=== PATIENT | male | born 1950 | race Caucasian/White ===

== ENCOUNTER 2017-07-13 15:23 | Emergency (ER) | payer MEDICARE, OTHER ==
[2017-07-13 15:37] VITALS: BP 134/75
--- NOTE | 2017-07-13 17:51 | EDM.PDOC ---
ED HPI GENERAL MEDICAL PROBLEM - General Chief Complaint: Upper Extremity Injury/Pain Stated Complaint: R RING FINGER INJURY Time Seen by Provider: 07/13/17 17:00 Source of Information: Reports: Patient History Limitations: Reports: No Limitations - History of Present Illness INITIAL COMMENTS - FREE TEXT/NARRATIVE: 66-year-old male presents for evaluation and treatment of injury to the right hand fourth finger. Injury occurred around 1430 today. Patient reports that he was working and was kicked in the hand by a cow. Reports the pain is an 8 out of 10 currently. No range of motion to the finger due to pain. States he took a hydrocodone earlier but this did not resolve any pain. In addition to decreased range of motion he reports swelling and bruising. Previous trauma to the finger about 10 years ago. He states that the finger was broken and was not seen initially. This resulted in trigger finger and he subsequently required trigger finger surgery. Onset: Today Location: Reports: Upper Extremity, Right (4th finger) Right Hand Pain Score (Numeric/FACES): 8 - Related Data Allergies Allergy/AdvReac Type Severity Reaction Status Date / Time morphine Allergy Difficulty Verified 07/13/17 15:32 Breathing Home Meds: Home Meds Aspirin [Balbir Chewable Aspirin] 81 mg PO DAILY 09/17/13 [History] Lisinopril 10 mg PO DAILY 09/17/13 [History] Multivitamin [Multi Vitamin Daily] 1 each PO DAILY 09/17/13 [History] Carvedilol 3.125 mg PO BID 04/06/14 [History] Clopidogrel [Plavix] 75 mg PO DAILY 04/06/14 [History] Hydrocodone/Acetaminophen [Hydrocodone-Acetaminophen 5-325] 1 each PO Q6HR PRN 04/06/14 [History] atorvaSTATin [Lipitor] 40 mg PO DAILY 04/06/14 [History] Furosemide [Lasix] 40 mg PO BID #60 tablet 09/10/14 [Rx] Potassium Chloride 20 meq PO DAILY #30 tab.er.prt 09/10/14 [Rx] Amoxicillin/Clavulanate K [Augmentin 875-125 MG] 1 tab PO Q12HR #20 tab [Rx] Past Medical History Cardiovascular History: Reports: High Cholesterol, Hypertension, [place], Prior Cardiac Arrest, Stents Social & Family History - Tobacco Use Smoking Status *Q: Current Every Day Smoker Years of Tobacco use: 40 Packs/Tins Daily: 0.6 - Alcohol Use Days Per Week of Alcohol Use: 0 - Recreational Drug Use Recreational Drug Use: No Review of Systems - Review of Systems Review Of Systems: See Below Musculoskeletal: Reports: Hand Pain (right hand 4th finger), Joint Swelling ( PIP joing right hand 4th finger) Skin: Reports: Bruising (right hand forth finger). Denies: Wound Neurological: Reports: Numbness, Tingling (right hand 4th finger) ED EXAM, GENERAL - Physical Exam Exam: See Below Exam Limited By: No Limitations General Appearance: Alert, WD/WN, No Apparent Distress Respiratory/Chest: No Respiratory Distress Cardiovascular: Normal Peripheral Pulses, Regular Rate, Rhythm Peripheral Pulses: 3+: Radial (R) Extremities: Normal Capillary Refill, Limited Range of Motion (due to pain, unable to flex finger), Other (no obvious deformity, swelling to the right hand PIP joint 4th finger) Neurological: Alert, Oriented, Normal Cognition ED TRAUMA EXTREMITY PROCEDURES - Splinting Right 4th Digit Splint Site: 4th finger Pre-Procedure NV Status: Normal Post-Procedure NV Status: Normal Splint Material: Aluminum-Foam Splint Design: Volar Applied & Form Fitted By: Nurse Provider Post-Splint Application NV Check: NV Status Normal, Good Position Complications: No Course - Vital Signs Last Recorded V/S: Last Vital Signs Temp 37.0 C 07/13/17 15:32 Pulse 80 07/13/17 15:32 Resp 18 07/13/17 15:32 BP 134/75 07/13/17 15:32 Pulse Ox 95 07/13/17 15:32 - Radiology Interpretation Free Text/Narrative:: X-ray of the right hand fourth finger shows no acute fractures or dislocations. - Re-Assessments/Exams Free Text/Narrative Re-Assessment/Exam: 07/13/17 17:46 I reviewed the imaging results patient. Patient was put in a finger splint and kat taped. He is instructed to follow- up with family practice. Discharge instructions as documented. Departure - Departure Time of Disposition: 17:46 Disposition: Home, Self-Care 01 Condition: Fair Clinical Impression: Dental abscess Injury of finger Qualifiers: Encounter type: initial encounter Laterality: right Qualified Code(s): S69.91XA - Unspecified injury of right wrist, hand and finger(s), initial encounter - Discharge Information Prescriptions: Amoxicillin/Clavulanate K [Augmentin 875-125 MG] 1 tab PO Q12HR #20 tab Instructions: Dental Abscess, [id number] Referrals: Sylvie Khalil PA [Primary Care Provider] - Forms: ED Department Discharge Additional Instructions: Take Augmentin 1 tab twice a day for 10 days. Take this with food. recommend starting a probiotic. These are available [id number]. Continue on your pain medication that you have at home. Tylenol or Motrin seen for less severe pain. Ice the finger. Keep the splint on to protect it and to allow for mobilization. if your pain continues beyond 7 days to the finger recommend follow-up with your PCP. Please return to the ER if your symptoms change or worsen.
--- NOTE | 2017-07-14 09:03 | CR ---
Right fourth finger: Four views of the right fourth finger were obtained. Comparison: No previous finger exam. Joint spaces are preserved. Calcification is seen along the volar finger at the level of the mid shaft of the middle phalanx most likely dystrophic. Soft tissue swelling appears to be present. No acute fracture or other abnormality is seen. Impression: 1. Findings as noted above which are felt to be incidental. No acute bony abnormality is identified on right fourth finger study. Diagnostic code #2 MTDD
== END 2017-07-13 17:55 | disposition home or self-care (01) ==
LOC: JD.ED 15:23
DX: S69.91XA Unspecified injury of right wrist, hand and finger(s), initial encounter (principal); K04.7 Periapical abscess without sinus; F17.210 Nicotine dependence, cigarettes, uncomplicated; I10 Essential (primary) hypertension; E78.00 Pure hypercholesterolemia, unspecified; Z95.5 Presence of coronary angioplasty implant and graft; Z79.02 Long term (current) use of antithrombotics/antiplatelets; Z79.82 Long term (current) use of aspirin; Z79.899 Other long term (current) drug therapy; Z88.5 Allergy status to narcotic agent; W55.22XA Struck by cow, initial encounter; Y93.89 Activity, other specified; Y99.0 Civilian activity done for income or pay
CPT/HCPCS: 29125; 73140-26-F8; 73140-F8; 99283; 99283-25

== ENCOUNTER 2018-09-15 06:45 | Emergency (ER) | payer MEDICARE, OTHER ==
[2018-09-15] MEDS ORDERED: Diltiazem 50 MG/10 ML SDV IVPUSH ONE (06:58)
[2018-09-15] MEDS ORDERED: Diltiazem 125 MG in Sodium Chloride 0.9% 100 ML IV SCH (07:00)
[2018-09-15] MEDS ORDERED: Sodium Chloride 0.9% 1,000 ML IV SCH (07:00)
--- NOTE | 2018-09-15 07:01 | EDM.PDOC ---
ED HPI GENERAL MEDICAL PROBLEM - General Chief Complaint: Cardiovascular Problem Stated Complaint: POSS HEART ATTACK/CHEST PAIN Time Seen by Provider: 09/15/18 06:58 Source of Information: Reports: Patient History Limitations: Reports: No Limitations - History of Present Illness INITIAL COMMENTS - FREE TEXT/NARRATIVE: 68-year-old male with known severe coronary disease presents to the ED with acute onset of rapid irregular heartbeat while he was getting ready for work this morning at about 0620 hrs. Patient has had previous cardiac arrest with resuscitation and subsequent stent placement I believe at least twice. He remains on Plavix. He states he's been on medication for H. pylori infection he still on 1 g of Carafate 4 times daily. Still having a lot of stomach pains. On initial assessment he appeared to be in atrial fibrillation with RVR at 125-135/ m. This was on the monitor. He was having some very mild left precordial chest pain and left arm pain compatible with ischemia from rate. Denies any other changes to his heart medications. Feels a little short of breath. Feels a little lightheaded and dizzy. Onset: Today Onset Date: 09/15/18 Onset Time: 06:20 Duration: Minutes: Location: Reports: Chest, Upper Extremity, Left Quality: Reports: Ache (Diffuse ache in his left upper arm.), Pressure Severity: Moderate Improves with: Reports: None (610) Worsens with: Reports: None Context: Denies: Activity, Exercise, Lifting, Sick Contact, Trauma, Other Associated Symptoms: Reports: Chest Pain, Cough, Shortness of Breath. 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: Other (see below) (None.) Left Arm Pain Score (Numeric/FACES): 7 Chest Pain Score (Numeric/FACES): 5 - Related Data Allergies Allergy/AdvReac Type Severity Reaction Status Date / Time morphine Allergy Difficulty Verified 09/15/18 07:13 Breathing Home Meds: Home Meds Aspirin [Balbir Chewable Aspirin] 81 mg PO DAILY 09/17/13 [History] Lisinopril 10 mg PO DAILY 09/17/13 [History] Multivitamin [Multi Vitamin Daily] 1 each PO DAILY 09/17/13 [History] Carvedilol 3.125 mg PO BID 04/06/14 [History] Clopidogrel [Plavix] 75 mg PO DAILY 04/06/14 [History] Hydrocodone/Acetaminophen [Hydrocodone-Acetaminophen 5-325] 1 each PO Q6HR PRN 04/06/14 [History] atorvaSTATin [Lipitor] 40 mg PO DAILY 04/06/14 [History] Furosemide [Lasix] 40 mg PO BID #60 tablet 09/10/14 [Rx] Amoxicillin/Clavulanate K [Augmentin 875-125 MG] 1 tab PO Q12HR #20 tab [Rx] Spironolactone [Aldactone] 25 mg PO BID #60 tab 09/15/18 [Rx] Past Medical History Cardiovascular History: Reports: High Cholesterol, Hypertension, [place] (With acute cardiac arrest in a successive resuscitation from Traction fib.), Prior Cardiac Arrest , Stents (Has [address] Social & Family History - Tobacco Use Smoking Status *Q: Current Every Day Smoker Tobacco Use Within Last Twelve Months: Cigarettes (10:15 per day) ED ROS GENERAL - Review of Systems Review Of Systems: See Below Constitutional: Reports: Weight Loss. Denies: Fever, Chills, Malaise, Weakness , Fatigue HEENT: Reports: Glasses Respiratory: Reports: Shortness of Breath, Wheezing (Only for reading), Cough, Sputum. Denies: Pleuritic Chest Pain, Hemoptysis, Other (Usually clear) Cardiovascular: Reports: Dyspnea on Exertion (Chronically), Lightheadedness. Denies: No Symptoms, Chest Pain (Occasionally he gets up too fast), Blood Pressure Problem, Claudication, Edema, Orthopnea Endocrine: Reports: No Symptoms GI/Abdominal: Reports: Abdominal Pain (Been having a lot of epigastric abdominal pain which is felt to be due to H. pylori infection.), Decreased Appetite. Denies: Constipation, Diarrhea, Difficulty Swallowing, Distension, Flatus, Hematemesis, Hematochezia, Melena : Reports: Frequency, Other Musculoskeletal: Reports: Back Pain (Nocturia 2), Joint Pain (These hip shoulders and neck at times) Skin: Reports: Bruising Neurological: Reports: No Symptoms Psychiatric: Reports: No Symptoms Hematologic/Lymphatic: Reports: No Symptoms Immunologic: Reports: No Symptoms ED EXAM, GENERAL - Physical Exam Exam: See Below Exam Limited By: No Limitations General Appearance: Alert, WD/WN, Mild Distress, Other (Monitor shows atrial fibrillation with a rapid ventricular rate in the 135 range. However by the time ECG was done and shows more of a first-degree AV block sinus rhythm or sinus tachycardia. Possible ectopic atrial rhythm is appreciated.) Throat/Mouth: Normal Inspection, Normal Lips, Normal Oropharynx Head: Atraumatic, Normocephalic Neck: Normal Inspection, Supple, Non-Tender, Full Range of Motion. No: Carotid Bruit, Lymphadenopathy (L), Lymphadenopathy (R) Respiratory/Chest: No Respiratory Distress, Lungs Clear, Normal Breath Sounds, No Accessory Muscle Use, Other (Pacemaker defibrillator left upper anterior chest.) Cardiovascular: No Edema, No Gallop, No Rub, Tachycardia (1 28/m regular wide- complex tachycardia ectopic atrial rhythm versus junctional tachycardia. Versus ectopic atrial tachycardia), Systolic Murmur (Grade 1/6 left lateral sternal border). No: Normal Peripheral Pulses, Regular Rate, Rhythm Peripheral Pulses: 1+: Posterior Tibial (L), Posterior Tibial (R), Dorsalis Pedis (L), Dorsalis Pedis (R) GI/Abdominal: Normal Bowel Sounds, Soft, Non-Tender, No Organomegaly, No Abnormal Bruit, No Mass, Pelvis Stable Back Exam: Normal Inspection, Full Range of Motion. No: CVA Tenderness (L), CVA Tenderness (R) Extremities: Normal Inspection, Normal Range of Motion, Non-Tender, No Pedal Edema Neurological: Alert, Oriented, CN II-XII Intact, Normal Cognition, Normal Gait Psychiatric: Normal Affect, Anxious Skin Exam: Warm (Mildly anxious), Dry, Intact, Normal Color, No Rash EKG INTERPRETATION EKG Date: 09/15/18 Time: 06:53 Rhythm: Other (Wide-complex regular tachycardia. Appears to be first-degree AV block. Ectopic atrial tachycardia) Rate (Beats/Min): 125 [place]: LAD-Left [place] Deviation (-24) P-Wave: Present (First-degree AV block crystal ectopic atrial rhythm.) QRS: Wide (There is a nonspecific intraventricular conduction delay which I believe will be a right bundle branch block.) ST-T: Other (His ST segment depression V4 to V6 and 1. AVL as well.) QT: Prolonged (Moderately prolonged.) Course - Vital Signs Last Recorded V/S: Last Vital Signs Temp 36.6 C 09/15/18 06:50 Pulse 134 H 09/15/18 06:50 Resp 22 H 09/15/18 06:50 BP 113/80 09/15/18 06:50 Pulse Ox 85 L 09/15/18 06:50 - Orders/Labs/Meds Orders: Active Orders 24 hr Category Date Time Status EKG 12 Lead [EKG Documentation Completion] [RC] URGENT Care 09/15/18 07:10 Active EKG Documentation Completion [RC] STAT Care 09/15/18 07:10 Active TSH [CHEM] Stat Lab 09/15/18 06:55 Received URINALYSIS W/O MICROSCOPIC [UA W/O MICROSCOPIC] [URIN] Lab 09/15/18 07:45 Ordered Stat Nitroglycerin/D5W [Nitroglycerin 25 MG/D5W 250 ML] Med 09/15/18 07:30 Active 25 mg in 250 ml IV TITRATE Sodium Chloride 0.9% [Normal Saline] 1,000 ml Med 09/15/18 07:00 Active IV ASDIRECTED Medication Orders Sodium Chloride (Normal Saline) 1,000 mls @ 100 mls/hr IV ASDIRECTED TICO Last Admin: 09/15/18 07:15 Dose: 100 mls/hr Nitroglycerin/Dextrose (Nitroglycerin 25 Mg/D5w 250 Ml) 25 mg in 250 mls @ 3 mls/hr IV TITRATE TICO; Protocol Last Admin: 09/15/18 07:32 Dose: 5 mcg/min, 3 mls/hr Labs: Laboratory Tests 09/15/18 09/15/18 09/15/18 Range/Units 06:55 06:55 06:55 WBC 9.53 H (4.23-9.07) K/mm3 RBC 4.42 L (4.63-6.08) M/mm3 Hgb 14.3 (13.7-17.5) gm/L Hct 43.5 (40.1-51.0) % MCV 98.4 H (79.0-92.2) fl MCH 32.4 H (25.7-32.2) pg MCHC 32.9 (32.2-35.5) g/dl RDW Std Deviation 47.2 H (35.1-43.9) fL Plt Count 265 (163-337) K/mm3 MPV 10.1 (9.4-12.3) fl Neutrophils % (Manual) 71 H (40-60) % Band Neutrophils % 1 (0-10) % Lymphocytes % (Manual) 18 L (20-40) % Atypical Lymphs % 0 % Monocytes % (Manual) 6 (2-10) % Eosinophils % (Manual) 4 (0.8-7.0) % Basophils % (Manual) 0 L (0.2-1.2) Platelet Estimate Adequate RBC Morph Comment Normal PT 11.0 (9.5-12.1) SECONDS INR 1.01 APTT 26 (24-31) SECONDS Sodium 142 (136-145) mEq/L Potassium 3.6 (3.5-5.1) mEq/L Chloride 105 (98-107) mEq/L Carbon Dioxide 27 (21-32) mEq/L Anion Gap 13.6 (5-15) BUN 13 (7-18) mg/dL Creatinine 1.1 (0.7-1.3) mg/dL Est Cr Clr Drug Dosing 58.95 mL/min Estimated GFR (MDRD) > 60 (>60) mL/min BUN/Creatinine Ratio 11.8 L (14-18) Glucose 115 (80-115) mg/dL Calcium 9.6 (8.5-10.1) mg/dL Magnesium 1.9 (1.8-2.4) mg/dl Total Bilirubin 0.4 (0.2-1.0) mg/dL AST 18 (15-37) U/L ALT 29 (16-63) U/L Alkaline Phosphatase 103 (46-116) U/L CK-MB (CK-2) 2.2 (0-3.6) ng/ml Troponin I 0.046 (0.00-0.056) ng/mL NT-Pro-B Natriuret Pep (0-125) pg/mL Total Protein 7.5 (6.4-8.2) g/dl Albumin 3.6 (3.4-5.0) g/dl Globulin 3.9 gm/dL Albumin/Globulin Ratio 0.9 L (1-2) 09/15/ Range/Units 06:55 WBC (4.23-9.07) K/mm3 RBC (4.63-6.08) M/mm3 Hgb (13.7-17.5) gm/L Hct (40.1-51.0) % MCV (79.0-92.2) fl MCH (25.7-32.2) pg MCHC (32.2-35.5) g/dl RDW Std Deviation (35.1-43.9) fL Plt Count (163-337) K/mm3 MPV (9.4-12.3) fl Neutrophils % (Manual) (40-60) % Band Neutrophils % (0-10) % Lymphocytes % (Manual) (20-40) % Atypical Lymphs % % Monocytes % (Manual) (2-10) % Eosinophils % (Manual) (0.8-7.0) % Basophils % (Manual) (0.2-1.2) Platelet Estimate RBC Morph Comment PT (9.5-12.1) SECONDS INR APTT (24-31) SECONDS Sodium (136-145) mEq/L Potassium (3.5-5.1) mEq/L Chloride (98-107) mEq/L Carbon Dioxide (21-32) mEq/L Anion Gap (5-15) BUN (7-18) mg/dL Creatinine (0.7-1.3) mg/dL Est Cr Clr Drug Dosing mL/min Estimated GFR (MDRD) (>60) mL/min BUN/Creatinine Ratio (14-18) Glucose (80-115) mg/dL Calcium (8.5-10.1) mg/dL Magnesium (1.8-2.4) mg/dl Total Bilirubin (0.2-1.0) mg/dL AST (15-37) U/L ALT (16-63) U/L Alkaline Phosphatase (46-116) U/L CK-MB (CK-2) (0-3.6) ng/ml Troponin I (0.00-0.056) ng/mL NT-Pro-B Natriuret Pep 3612 H (0-125) pg/mL Total Protein (6.4-8.2) g/dl Albumin (3.4-5.0) g/dl Globulin gm/dL Albumin/Globulin Ratio (1-2) Meds: Medications Generic Name Dose Route Start Last Admin Trade Name Freq PRN Reason Stop Dose Admin Sodium Chloride 1,000 mls @ 100 mls/hr 09/15/18 07:00 09/15/18 07:15 Normal Saline IV 100 mls/hr ASDIRECTED TICO Administration Nitroglycerin/Dextrose 25 mg in 250 mls @ 3 mls/hr 09/15/18 07:30 09/15/18 07 :32 Nitroglycerin 25 Mg/D5w 250 Ml IV 5 mcg/min TITRATE TICO 3 mls/hr Administration Protocol 5 MCG/MIN Discontinued Medications Generic Name Dose Route Start Last Admin Trade Name Stacy PRN Reason Stop Dose Admin Aspirin 324 mg 09/15/18 07:21 09/15/18 07:45 Aspirin PO 09/15/18 07:22 324 mg ONETIME ONE Administration Diltiazem HCl 10 mg 09/15/18 06:58 09/15/18 07:05 Cardizem IVPUSH 09/15/18 06:59 10 mg ONETIME ONE Administration Furosemide 40 mg 09/15/18 07:47 09/15/18 07:55 Lasix IVPUSH 09/15/18 07:48 40 mg NOW ONE Administration Diltiazem HCl 125 mg/ Sodium 125 mls @ 10 mls/hr 09/15/18 07:00 Chloride IV TITRATE TICO Protocol 10 MG/HR - Radiology Interpretation Free Text/Narrative:: 68-year-old male with known severe coronary disease presents to the ED with some very mild left precordial chest discomfort and left arm pain. States as he was getting ready for work about 0615 hrs. this morning he developed funny feeling in his chest slight dizziness and shortness of breath. When he got here his heart rate was in the 125-135 range and appeared to be an ectopic atrial tachycardia. He has a nonspecific intraventricular conduction delay most likely incomplete right bundle branch block. Initially thought he might be in atrial fibrillation on the monitor. He was given 10 mg of Cardizem IV with plan to use Cardizem IV drip at 5 mg per hour. However once he received 10 mg of Cardizem as I'm his heart rate dropped into the 76. It shows first-degree AV block sinus rhythm with an wide-complex. Blood pressure is 95 on 60 to his chest pain went away his left arm pain went away completely. Therefore given aspirin 324 mg chewed and will be starting nitroglycerin drip at 5 mcg/min. - Re-Assessments/Exams Free Text/Narrative Re-Assessment/Exam: 09/15/18 07:22 second ECG done after initial bolus of Cardizem was given now reveals a sinus rhythm in the 70s. Does have a nonspecific intraventricular conduction delay. There is a first-degree AV block. There is diffuse repolarization abnormalities V5 to V6 that are somewhat improved compared to the first ECG. The Cardizem drip will be discontinued. Given aspirin 324 mg chewed and if he needs further medication will be metoprolol. He will restart low-dose nitroglycerin 5 mcg/m until he can establish whether or not he is having ischemic chest pain. 09/15/18 07:43 at present he feels completely back to normal with no chest pain or arm discomfort. Chest x-ray done portably shows a defibrillator pacemaker left upper anterior chest. Moderate cardiomegaly. There is a diffuse infiltrate right lower lobe with bilateral mild pleural pulmonary fibrosis. Infiltrate could represent fluid . Less likely infection. 09/15/18 07:57 Only the hematology is back. White count is 9.53 with 71% neutrophils 1% band cells. Hemoglobin is 14.3 with hematocrit of 43.5. MCV is mildly elevated at 98.4. Platelet count is 265,000 . Radiologist reports heart size is upper limits of normal previous cervical spine surgery appreciated emphysematous changes present throughout the lungs. Slight increased density within the right lung base is seen likely representing atelectasis. Interstitial changes noted throughout both lungs believed to be fairly stable from prior study and appearing more prominent due to technique . Appreciated [place] scarring noted within the right upper lung as well .Prior lumbar spine surgery appreciat 09/15/18 08:19 PT 11.0 with an INR 1.01. PTT is 26. Sodium 142 with a potassium of 3.6. Chloride 105 with a bicarbonate 27. Anion gap is 13.6. BUN is 13. Creatinine is 1.1. GFR remains greater than 60. Glucose is 1:15. Calcium is 9.6. Magnesium 1.9. Liver function normal. CK-MB fraction 2.2. Troponin I is less than 0.046. BNP was elevated at 3612. Total protein is 7.5 with an albumin fraction of 3.6. 09/15/18 08:[address] the patient on Aldactone 25 mg twice a day a.m. and supper time in an effort to improve his congestive heart failure and make his Lasix work a little more effectively. I will discontinue his potassium supplement in the interim. The blood work done in 7-10 days time for repeat renal function and serum potassium level. Departure - Departure Time of Disposition: 08:21 Disposition: Home, Self-Care 01 Condition: Fair Clinical Impression: Paroxysmal atrial tachycardia by electrocardiogram CHF (congestive heart failure), NYHA class III Qualifiers: Congestive heart failure type: diastolic Congestive heart failure chronicity: acute on chronic Qualified Code(s): I50.33 - Acute on chronic diastolic ( congestive) heart failure Prescriptions: Spironolactone [Aldactone] 25 mg PO BID #60 tab Instructions: Supraventricular Tachycardia, Adult, [id number], Heart Failure , [id number] Referrals: Jonatan Khalil PA [Primary Care Provider] - Forms: ED Department Discharge Additional Instructions: Evaluation the emergency room today in regards to sudden onset of racing heart at 1 35/m. This caused you do have some central chest discomfort left arm discomfort and dizziness. The exact cause for this occurrence is unclear. The only thing that was elevated was increased fluid in the lungs i.e. worsening of congestive heart failure. No major electrolyte imbalances were identified. Treated with one dose of Cardizem 10 mg which brought to back and down into the 70s and converted back to normal regular rhythm. You're given the next dose of Lasix 40 mg while in the ED because of extra fluid in the lungs. Change of medication will be addition of Aldactone 25 5 mg twice daily once in the morning and once at supper to help the Lasix work better and to help with heart failure. He will need to stop your potassium supplement while on this medication. Her blood work in 7 days time to repeat your serum potassium level and kidney function to make sure there is no adverse effects to the Aldactone. Please follow-up with your personal care provider in this regard. Don't throw your potassium pills away as you may need them in the future. - My Orders Last 24 Hours: My Active Orders 09/15/18 06:55 TSH [CHEM] Stat 09/15/18 07:00 Sodium Chloride 0.9% [Normal Saline] 1,000 ml IV ASDIRECTED 09/15/18 07:10 EKG 12 Lead [EKG Documentation Completion] [RC] URGENT EKG Documentation Completion [RC] STAT 09/15/18 07:30 Nitroglycerin/D5W [Nitroglycerin 25 MG/D5W 250 ML] 25 mg in 250 ml IV TITRATE 09/15/18 07:45 URINALYSIS W/O MICROSCOPIC [UA W/O MICROSCOPIC] [URIN] Stat - Assessment/Plan Last 24 Hours: My Active Orders 09/15/18 06:55 TSH [CHEM] Stat 09/15/18 07:00 Sodium Chloride 0.9% [Normal Saline] 1,000 ml IV ASDIRECTED 09/15/18 07:10 EKG 12 Lead [EKG Documentation Completion] [RC] URGENT EKG Documentation Completion [RC] STAT 09/15/18 07:30 Nitroglycerin/D5W [Nitroglycerin 25 MG/D5W 250 ML] 25 mg in 250 ml IV TITRATE 09/15/18 07:45 URINALYSIS W/O MICROSCOPIC [UA W/O MICROSCOPIC] [URIN] Stat
[2018-09-15] MEDS ORDERED: Aspirin 81 MG Tab.Chew PO ONE (07:21)
[2018-09-15] MEDS ORDERED: Nitroglycerin/D5W 25 MG/250 ML BOTTLE IV SCH (07:30)
[2018-09-15] MEDS ORDERED: Furosemide 40 MG/4 ML VIAL IVPUSH ONE (07:47)
--- NOTE | 2018-09-15 07:52 | CR ---
Chest: Portable view of the chest was obtained. Comparison: Prior chest CT of 10/13/17 and chest x-ray of 01/25/18. Heart size at the upper limits of normal. AICD is present. Previous cervical spine surgery is noted. Emphysematous change is present. Slight increased density within the right lung base is seen likely representing atelectasis. Interstitial change is noted throughout both lungs believed to be fairly stable from prior study and appearing more prominent due to technique rather than a mild degenerative change scattered within the spine with slight scoliosis. Minimal linear scarring noted within the upper right lung. Prior lumbar spine surgery is also noted. Impression: 1. Mild right basilar atelectasis. 2. Emphysematous change. 3. Interstitial change believed to be chronic. 4. Prior cervical and lumbar spine surgery. Diagnostic code #3
[2018-09-15 09:44] VITALS: BP 104/69
== END 2018-09-15 08:50 | disposition home or self-care (01) ==
LOC: JD.ED 06:45
DX: I11.0 Hypertensive heart disease with heart failure (principal); I50.33 Acute on chronic diastolic (congestive) heart failure; E78.00 Pure hypercholesterolemia, unspecified; I25.2 Old myocardial infarction; Z79.82 Long term (current) use of aspirin; Z79.899 Other long term (current) drug therapy; Z88.5 Allergy status to narcotic agent
CPT/HCPCS: 36415; 71045; 80053; 81003; 82553; 83735; 83880; 84443; 84484; 85007; 85027; 85610; 85730; 93005; 96365; 96375; 99285; A9270; J1940; J3490; J7040

== ENCOUNTER 2019-03-18 17:52 | Emergency (ER) | payer MEDICARE, OTHER ==
[2019-03-18] MEDS ORDERED: Sodium Chloride 0.9% 10 ML Syringe FLUSH PRN ×2 (17:58→21:36)
[2019-03-18] MEDS ORDERED: Albuterol/Ipratropium 3.0-0.5 MG/3 ML Neb Soln NEB ONE ×3 (18:01→20:00)
--- NOTE | 2019-03-18 18:14 | EDM.PDOC ---
<Sarath Shah - Last Filed: 03/18/19 18:57> ED HPI GENERAL MEDICAL PROBLEM - General Chief Complaint: Respiratory Problem Stated Complaint: SOB Time Seen by Provider: 03/18/19 17:58 Source of Information: Reports: Patient, RN Notes Reviewed - History of Present Illness INITIAL COMMENTS - FREE TEXT/NARRATIVE: 68-year-old male drove to the front entrance of the ED with his pickup truck, collapsed in the entrance with near respiratory failure. He states he has "been short of breath for a long time which apparently has been at least a few weeks but getting worse over the last day or 2 and especially this afternoon. Sounds like he ran out of his albuterol inhaler some time ago. He has been continuing to use an Advair inhaler but states "that does not work". He has been coughing more than usual occasionally productive. Had some chills but no definite fever. Does have history of probable COPD. He does continue to smoke but states he has only had "one cigarette today. Asked about alcohol he states he had "one shot of alcohol" try help loosen up his lungs. His chest does feel heavy and tight upon arrival to ED. He does have history of a pacemaker. - Related Data Allergies Allergy/AdvReac Type Severity Reaction Status Date / Time morphine Allergy Difficulty Verified 09/15/18 07:13 Breathing Home Meds: Home Meds Aspirin [Balbir Chewable Aspirin] 81 mg PO DAILY 09/17/13 [History] Lisinopril 2.5 mg PO DAILY 09/17/13 [History] Multivitamin [Multi Vitamin Daily] 1 each PO DAILY 09/17/13 [History] Carvedilol 3.125 mg PO BID 04/06/14 [History] Clopidogrel [Plavix] 75 mg PO DAILY 04/06/14 [History] atorvaSTATin [Lipitor] 40 mg PO DAILY 04/06/14 [History] Albuterol [Ventolin HFA] 1 puff INH Q4H PRN 03/18/19 [History] Budesonide/Formoterol Fumarate [Symbicort 80-4.5 MCG] 2 puff INH BID 03/18/19 [ History] Diazepam [Valium] 5 mg PO BEDTIME 03/18/19 [History] Digoxin 0.125 mg PO DAILY 03/18/19 [History] Furosemide [Lasix] 40 mg PO DAILY 03/18/19 [History] Hydrocodone/Acetaminophen [Hydrocodon-Acetaminophn 10-325] 1 tab PO Q4H PRN [History] Potassium Chloride 20 meq PO DAILY 03/18/19 [History] Past Medical History HEENT History: Reports: Impaired Vision Other HEENT History: wears eyeglasses for reading. Cardiovascular History: Reports: High Cholesterol, Hypertension, SD (With acute cardiac arrest in a successive resuscitation from V. fib.), Prior Cardiac Arrest , Stents (Has [address] Respiratory History: Reports: COPD Gastrointestinal History: Reports: Helicobacter Pylori Musculoskeletal History: Reports: Fracture Neurological History: Reports: Migraines - Infectious Disease History Infectious Disease History: Reports: Chicken Pox, Measles - Past Surgical History Cardiovascular Surgical History: Reports: Pacer GI Surgical History: Reports: Appendectomy, Colonoscopy Musculoskeletal Surgical History: Reports: Other (See Below) Other Musculoskeletal Surgeries/Procedures:: back fusion Social & Family History - Caffeine Use Caffeine Use: Reports: Soda EKG INTERPRETATION EKG Date: 03/18/19 Rhythm: Other (Sinus tachycardia) P-Wave: Present QRS: Other (Q waves inferior leads) ST-T: Other (ST depression and T-wave inversion V2., Mild ST elevation in V4, V5 and V6.) Course - Vital Signs Last Recorded V/S: Last Vital Signs Temp 96.8 F 03/18/19 17:53 Pulse 123 H 03/18/19 17:53 Resp 35 H 03/18/19 17:53 BP 142/128 H 03/18/19 17:53 Pulse Ox 97 03/18/19 20:06 - Orders/Labs/Meds Orders: Active Orders 24 hr Category Date Time Status BIPAP [RT BiPAP/CPAP] [RC] ASDIRECTED Care 03/18/19 20:50 Active EKG 12 Lead [EKG Documentation Completion] [RC] STAT Care 03/18/19 17:59 Active EKG 12 Lead [EKG Documentation Completion] [RC] STAT Care 03/18/19 19:04 Active Peripheral IV Care [RC] . DIRECTED Care 03/18/19 17:59 Active RT Aerosol Therapy [RC] ASDIRECTED Care 03/18/19 18:01 Active RT Aerosol Therapy [RC] ASDIRECTED Care 03/18/19 18:58 Active RT Aerosol Therapy [RC] ASDIRECTED Care 03/18/19 20:00 Active Chest 1V Frontal [CR] Stat Exams 03/18/19 17:59 Taken C-REACTIVE PROTEIN [CHEM] Stat Lab 03/18/19 21:36 Ordered CBC WITH MANUAL DIFF [HEME] Stat Lab 03/18/19 21:36 Ordered COMPREHENSIVE METABOLIC PN,CMP [CHEM] Stat Lab 03/18/19 21:36 Ordered CULTURE BLOOD [BC] Stat Lab 03/18/19 20:59 Received CULTURE BLOOD [BC] Stat Lab 03/18/19 21:04 Received LACTATE SEPSIS W/ REFLEX [CHEM] Stat Lab 03/18/19 21:36 Ordered Blood Culture x2 Reflex Set [OM.PC] Stat Oth 03/18/19 20:46 Ordered Peripheral IV Insertion Adult [OM.PC] Stat Oth 03/18/19 17:59 Ordered Saline Lock Insert [OM.PC] Stat Oth 03/18/19 21:36 Ordered Severe Sepsis Onset Time [OM.PC] Stat Oth 03/18/19 21:36 Ordered Labs: Laboratory Tests 03/18/19 03/18/19 03/18/19 Range/Units 17:55 17:55 17:55 WBC 11.11 H (4.23-9.07) K/mm3 RBC 4.15 L (4.63-6.08) M/mm3 Hgb 13.5 L (13.7-17.5) gm/dl Hct 41.3 (40.1-51.0) % MCV 99.5 H (79.0-92.2) fl MCH 32.5 H (25.7-32.2) pg MCHC 32.7 (32.2-35.5) g/dl RDW Std Deviation 49.1 H (35.1-43.9) fL Plt Count 242 (163-337) K/mm3 MPV 10.9 (9.4-12.3) fl Neut % (Auto) 60.4 (34.0-67.9) % Lymph % (Auto) 27.6 (21.8-53.1) % Tucker % (Auto) 11.1 (5.3-12.2) % Eos % (Auto) 0.5 L (0.8-7.0) Baso % (Auto) 0.2 (0.1-1.2) % Neut # (Auto) 6.72 H (1.78-5.38) K/mm3 Lymph # (Auto) 3.07 (1.32-3.57) K/mm3 Tucker # (Auto) 1.23 H (0.30-0.82) K/mm3 Eos # (Auto) 0.05 (0.04-0.54) K/mm3 Baso # (Auto) 0.02 (0.01-0.08) K/mm3 Manual Slide Review Abnormal smear PT (9.7-12.0) SECONDS INR Puncture Site ABG pH (7.35-7.45) ABG pCO2 (35.0-45.0) mmHg ABG pO2 (80.0-100.0) mmHg ABG HCO3 (22.0-26.0) meq/L ABG O2 Saturation (96.0-97.0) % ABG Base Excess (-2-2.0) A-a Gradient mmHg O2 Delivery Device Oxygen Flow Rate FiO2 (21.00-100.00) % Blood Gas Comments Sodium 139 (136-145) mEq/L Potassium 3.8 (3.5-5.1) mEq/L Chloride 102 (98-107) mEq/L Carbon Dioxide 19 L (21-32) mEq/L Anion Gap 21.8 H (5-15) BUN 15 (7-18) mg/dL Creatinine 1.3 (0.7-1.3) mg/dL Est Cr Clr Drug Dosing TNP Estimated GFR (MDRD) 55 (>60) mL/min BUN/Creatinine Ratio 11.5 L (14-18) Glucose 152 H (80-115) mg/dL Lactic Acid (0.4-2.0) mmol/L Calcium 9.3 (8.5-10.1) mg/dL Total Bilirubin 1.1 H (0.2-1.0) mg/dL AST 25 (15-37) U/L ALT 44 (16-63) U/L Alkaline Phosphatase 114 (46-116) U/L Troponin I 0.071 H* (0.00-0.056) ng/mL C-Reactive Protein 5.6 H* (<1.0) mg/dL NT-Pro-B Natriuret Pep (0-125) pg/mL Total Protein 7.6 (6.4-8.2) g/dl Albumin 3.7 (3.4-5.0) g/dl Globulin 3.9 gm/dL Albumin/Globulin Ratio 1.0 (1-2) Urine Color (Yellow) Urine Appearance (Clear) Urine pH (5.0-8.0) Ur Specific [place] (1.005-1.030) Urine Protein (Negative) Urine Glucose (UA) (Negative) Urine Ketones (Negative) Urine Occult Blood (Negative) Urine Nitrite (Negative) Urine Bilirubin (Negative) Urine Urobilinogen (0.2-1.0) Ur Leukocyte Esterase (Negative) Urine RBC (0-5) /hpf Urine WBC (0-5) /hpf Ur Squamous Epith Cells (0-5) /hpf Urine Bacteria (FEW) /hpf Hyaline Casts (0-5) /lpf Urine Mucus (FEW) /hpf Digoxin (0.9-2.0) ng/mL Ethyl Alcohol 0.00 (0.00) gm% 03/18/19 03/18/19 03/18/19 Range/Units 17:55 17:55 19:35 WBC (4.23-9.07) K/mm3 RBC (4.63-6.08) M/mm3 Hgb (13.7-17.5) gm/dl Hct (40.1-51.0) % MCV (79.0-92.2) fl MCH (25.7-32.2) pg MCHC (32.2-35.5) g/dl RDW Std Deviation (35.1-43.9) fL Plt Count (163-337) K/mm3 MPV (9.4-12.3) fl Neut % (Auto) (34.0-67.9) % Lymph % (Auto) (21.8-53.1) % Tucker % (Auto) (5.3-12.2) % Eos % (Auto) (0.8-7.0) Baso % (Auto) (0.1-1.2) % Neut # (Auto) (1.78-5.38) K/mm3 Lymph # (Auto) (1.32-3.57) K/mm3 Tucker # (Auto) (0.30-0.82) K/mm3 Eos # (Auto) (0.04-0.54) K/mm3 Baso # (Auto) (0.01-0.08) K/mm3 Manual Slide Review PT 12.3 H (9.7-12.0) SECONDS INR 1.14 Puncture Site Rt brachial ABG pH 7.35 (7.35-7.45) ABG pCO2 29.8 L (35.0-45.0) mmHg ABG pO2 70.0 L (80.0-100.0) mmHg ABG HCO3 16.0 L (22.0-26.0) meq/L ABG O2 Saturation 91.3 L (96.0-97.0) % ABG Base Excess -8.0 L (-2-2.0) A-a Gradient 121 mmHg O2 Delivery Device Cannula Oxygen Flow Rate 3.0 FiO2 32.00 (21.00-100.00) % Blood Gas Comments Sodium (136-145) mEq/L Potassium (3.5-5.1) mEq/L Chloride (98-107) mEq/L Carbon Dioxide (21-32) mEq/L Anion Gap (5-15) BUN (7-18) mg/dL Creatinine (0.7-1.3) mg/dL Est Cr Clr Drug Dosing Estimated GFR (MDRD) (>60) mL/min BUN/Creatinine Ratio (14-18) Glucose (80-115) mg/dL Lactic Acid (0.4-2.0) mmol/L Calcium (8.5-10.1) mg/dL Total Bilirubin (0.2-1.0) mg/dL AST (15-37) U/L ALT (16-63) U/L Alkaline Phosphatase (46-116) U/L Troponin I (0.00-0.056) ng/mL C-Reactive Protein (<1.0) mg/dL NT-Pro-B Natriuret Pep 56420 H (0-125) pg/mL Total Protein (6.4-8.2) g/dl Albumin (3.4-5.0) g/dl Globulin gm/dL Albumin/Globulin Ratio (1-2) Urine Color (Yellow) Urine Appearance (Clear) Urine pH (5.0-8.0) Ur Specific [place] (1.005-1.030) Urine Protein (Negative) Urine Glucose (UA) (Negative) Urine Ketones (Negative) Urine Occult Blood (Negative) Urine Nitrite (Negative) Urine Bilirubin (Negative) Urine Urobilinogen (0.2-1.0) Ur Leukocyte Esterase (Negative) Urine RBC (0-5) /hpf Urine WBC (0-5) /hpf Ur Squamous Epith Cells (0-5) /hpf Urine Bacteria (FEW) /hpf Hyaline Casts (0-5) /lpf Urine Mucus (FEW) /hpf Digoxin (0.9-2.0) ng/mL Ethyl Alcohol (0.00) gm% 03/18/19 03/18/19 03/18/19 Range/Units 20:11 20:25 20:25 WBC (4.23-9.07) K/mm3 RBC (4.63-6.08) M/mm3 Hgb (13.7-17.5) gm/dl Hct (40.1-51.0) % MCV (79.0-92.2) fl MCH (25.7-32.2) pg MCHC (32.2-35.5) g/dl RDW Std Deviation (35.1-43.9) fL Plt Count (163-337) K/mm3 MPV (9.4-12.3) fl Neut % (Auto) (34.0-67.9) % Lymph % (Auto) (21.8-53.1) % Tucker % (Auto) (5.3-12.2) % Eos % (Auto) (0.8-7.0) Baso % (Auto) (0.1-1.2) % Neut # (Auto) (1.78-5.38) K/mm3 Lymph # (Auto) (1.32-3.57) K/mm3 Tucker # (Auto) (0.30-0.82) K/mm3 Eos # (Auto) (0.04-0.54) K/mm3 Baso # (Auto) (0.01-0.08) K/mm3 Manual Slide Review PT (9.7-12.0) SECONDS INR Puncture Site ABG pH (7.35-7.45) ABG pCO2 (35.0-45.0) mmHg ABG pO2 (80.0-100.0) mmHg ABG HCO3 (22.0-26.0) meq/L ABG O2 Saturation (96.0-97.0) % ABG Base Excess (-2-2.0) A-a Gradient mmHg O2 Delivery Device Oxygen Flow Rate FiO2 (21.00-100.00) % Blood Gas Comments Sodium (136-145) mEq/L Potassium (3.5-5.1) mEq/L Chloride (98-107) mEq/L Carbon Dioxide (21-32) mEq/L Anion Gap (5-15) BUN (7-18) mg/dL Creatinine (0.7-1.3) mg/dL Est Cr Clr Drug Dosing Estimated GFR (MDRD) (>60) mL/min BUN/Creatinine Ratio (14-18) Glucose (80-115) mg/dL Lactic Acid (0.4-2.0) mmol/L Calcium (8.5-10.1) mg/dL Total Bilirubin (0.2-1.0) mg/dL AST (15-37) U/L ALT (16-63) U/L Alkaline Phosphatase (46-116) U/L Troponin I 0.066 H* (0.00-0.056) ng/mL C-Reactive Protein (<1.0) mg/dL NT-Pro-B Natriuret Pep (0-125) pg/mL Total Protein (6.4-8.2) g/dl Albumin (3.4-5.0) g/dl Globulin gm/dL Albumin/Globulin Ratio (1-2) Urine Color Yellow (Yellow) Urine Appearance Clear (Clear) Urine pH 6.0 (5.0-8.0) Ur Specific [place] 1.020 (1.005-1.030) Urine Protein 1+ H (Negative) Urine Glucose (UA) Negative (Negative) Urine Ketones Negative (Negative) Urine Occult Blood Negative (Negative) Urine Nitrite Negative (Negative) Urine Bilirubin Negative (Negative) Urine Urobilinogen 1.0 (0.2-1.0) Ur Leukocyte Esterase Negative (Negative) Urine RBC 0-5 (0-5) /hpf Urine WBC 0-5 (0-5) /hpf Ur Squamous Epith Cells 0-5 (0-5) /hpf Urine Bacteria Rare (FEW) /hpf Hyaline Casts 10-20 H (0-5) /lpf Urine Mucus Few (FEW) /hpf Digoxin 0.5 L (0.9-2.0) ng/mL Ethyl Alcohol (0.00) gm% 03/18/19 03/18/19 Range/Units 20:59 21:36 WBC (4.23-9.07) K/mm3 RBC (4.63-6.08) M/mm3 Hgb (13.7-17.5) gm/dl Hct (40.1-51.0) % MCV (79.0-92.2) fl MCH (25.7-32.2) pg MCHC (32.2-35.5) g/dl RDW Std Deviation (35.1-43.9) fL Plt Count (163-337) K/mm3 MPV (9.4-12.3) fl Neut % (Auto) (34.0-67.9) % Lymph % (Auto) (21.8-53.1) % Tucker % (Auto) (5.3-12.2) % Eos % (Auto) (0.8-7.0) Baso % (Auto) (0.1-1.2) % Neut # (Auto) (1.78-5.38) K/mm3 Lymph # (Auto) (1.32-3.57) K/mm3 Tucker # (Auto) (0.30-0.82) K/mm3 Eos # (Auto) (0.04-0.54) K/mm3 Baso # (Auto) (0.01-0.08) K/mm3 Manual Slide Review PT (9.7-12.0) SECONDS INR Puncture Site Lt radial ABG pH 7.42 (7.35-7.45) ABG pCO2 31.7 L (35.0-45.0) mmHg ABG pO2 73.0 L (80.0-100.0) mmHg ABG HCO3 20.0 L (22.0-26.0) meq/L ABG O2 Saturation 93.0 L (96.0-97.0) % ABG Base Excess -3.1 L (-2-2.0) A-a Gradient 102 mmHg O2 Delivery Device Bipap Oxygen Flow Rate FiO2 30.00 (21.00-100.00) % Blood Gas Comments Bipap 10/5 Sodium (136-145) mEq/L Potassium (3.5-5.1) mEq/L Chloride (98-107) mEq/L Carbon Dioxide (21-32) mEq/L Anion Gap (5-15) BUN (7-18) mg/dL Creatinine (0.7-1.3) mg/dL Est Cr Clr Drug Dosing Estimated GFR (MDRD) (>60) mL/min BUN/Creatinine Ratio (14-18) Glucose (80-115) mg/dL Lactic Acid 1.8 (0.4-2.0) mmol/L Calcium (8.5-10.1) mg/dL Total Bilirubin (0.2-1.0) mg/dL AST (15-37) U/L ALT (16-63) U/L Alkaline Phosphatase (46-116) U/L Troponin I (0.00-0.056) ng/mL C-Reactive Protein (<1.0) mg/dL NT-Pro-B Natriuret Pep (0-125) pg/mL Total Protein (6.4-8.2) g/dl Albumin (3.4-5.0) g/dl Globulin gm/dL Albumin/Globulin Ratio (1-2) Urine Color (Yellow) Urine Appearance (Clear) Urine pH (5.0-8.0) Ur Specific [place] (1.005-1.030) Urine Protein (Negative) Urine Glucose (UA) (Negative) Urine Ketones (Negative) Urine Occult Blood (Negative) Urine Nitrite (Negative) Urine Bilirubin (Negative) Urine Urobilinogen (0.2-1.0) Ur Leukocyte Esterase (Negative) Urine RBC (0-5) /hpf Urine WBC (0-5) /hpf Ur Squamous Epith Cells (0-5) /hpf Urine Bacteria (FEW) /hpf Hyaline Casts (0-5) /lpf Urine Mucus (FEW) /hpf Digoxin (0.9-2.0) ng/mL Ethyl Alcohol (0.00) gm% Meds: Medications Discontinued Medications Generic Name Dose Route Start Last Admin Trade Name Freq PRN Reason Stop Dose Admin Albuterol/Ipratropium 3 ml 03/18/19 18:01 03/18/19 18:02 Duoneb 3.0-0.5 Mg/3 Ml NEB 03/18/19 18:02 3 ml ONETIME ONE Administration Albuterol/Ipratropium 3 ml 03/18/19 18:58 03/18/19 19:13 Duoneb 3.0-0.5 Mg/3 Ml NEB 03/18/19 18:59 3 ml ONETIME ONE Administration Albuterol/Ipratropium 3 ml 03/18/19 20:00 03/18/19 20:04 Duoneb 3.0-0.5 Mg/3 Ml NEB 03/18/19 20:01 3 ml ONETIME ONE Administration Aspirin 324 mg 03/18/19 18:57 03/18/19 19:19 Aspirin PO 03/18/19 18:58 324 mg ONETIME ONE Administration Furosemide 40 mg 03/18/19 19:31 03/18/19 19:38 Lasix IVPUSH 03/18/19 19:32 40 mg NOW ONE Administration Furosemide 40 mg 03/18/19 19:59 03/18/19 20:03 Lasix IVPUSH 03/18/19 20:00 40 mg NOW ONE Administration Sodium Chloride 1,000 mls @ 999 mls/hr 03/18/19 19:00 03/18/19 19:19 Normal Saline IV 999 mls/hr ONETIME TICO Administration Ceftriaxone Sodium 1 gm/ 100 mls @ 200 mls/hr 03/18/19 21:12 03/18/19 21:19 Sodium Chloride IV 03/18/19 21:41 200 mls/hr ONETIME ONE Administration Sodium Chloride 1,000 mls @ 500 mls/hr 03/18/19 21:36 Normal Saline IV 03/18/19 23:35 BOLUS ONE Lorazepam 1 mg 03/18/19 19:33 03/18/19 19:38 Ativan IVPUSH 03/18/19 19:34 1 mg ONETIME ONE Administration Methylprednisolone Sodium Succinate 125 mg 03/18/19 21:35 03/18/19 21:48 Solu-Medrol IVPUSH 03/18/19 21:36 125 mg ONETIME ONE Administration Morphine Sulfate 4 mg 03/18/19 19:31 03/18/19 19:40 Morphine IVPUSH 03/18/19 19:32 Not Given ONETIME ONE Sodium Chloride 10 ml 03/18/19 17:58 03/18/19 18:03 Saline Flush FLUSH 10 ml ASDIRECTED PRN Administration Keep Vein Open Sodium Chloride 10 ml 03/18/19 21:36 Saline Flush FLUSH ASDIRECTED PRN Keep Vein Open - Re-Assessments/Exams Free Text/Narrative Re-Assessment/Exam: 03/18/19 18:58 White blood count 11,100, CO2 is low, anion gap mildly elevated. Troponin has come back mildly elevated also at 0.07. He is resting very comfortably now no longer short of breath but also still on oxygen. Sats are 96 %. lungs are now mostly clear moving air comfortably with minimal wheezing. Heart rate has come down 105. Chest x-ray shows some mild diffuse interstitial changes similar to prior chest x-ray of about one half year ago. No obvious infiltrate, no effusion. We'll plan to recheck a 3 hour troponin. Have ordered aspirin 324 mg by mouth. Have ordered a 500 ml normal saline bolus. It is now end of shift so will transfer care to Dr. Reyes at this time. Departure - Departure Disposition: DC/Tfer to [facility] 02 Clinical Impression: Elevated troponin, High risk of cardiac event, COPD exacerbation Acute exacerbation of CHF (congestive heart failure) Qualifiers: Heart failure type: unspecified Qualified Code(s): I50.9 - Heart failure, unspecified Acute bronchitis Qualifiers: Bronchitis organism: unspecified organism Qualified Code(s): J20.9 - Acute bronchitis, unspecified - Discharge Information - My Orders Last 24 Hours: My Active Orders 03/18/19 20:00 RT Aerosol Therapy [RC] ASDIRECTED 03/18/19 20:46 Blood Culture x2 Reflex Set [OM.PC] Stat 03/18/19 20:50 BIPAP [RT BiPAP/CPAP] [RC] ASDIRECTED 03/18/19 20:59 CULTURE BLOOD [BC] Stat 03/18/19 21:04 CULTURE BLOOD [BC] Stat 03/18/19 21:36 C-REACTIVE PROTEIN [CHEM] Stat CBC WITH MANUAL DIFF [HEME] Stat COMPREHENSIVE METABOLIC PN,CMP [CHEM] Stat LACTATE SEPSIS W/ REFLEX [CHEM] Stat Saline Lock Insert [OM.PC] Stat Severe Sepsis Onset Time [OM.PC] Stat - Assessment/Plan Last 24 Hours: My Active Orders 03/18/19 20:00 RT Aerosol Therapy [RC] ASDIRECTED 03/18/19 20:46 Blood Culture x2 Reflex Set [OM.PC] Stat 03/18/19 20:50 BIPAP [RT BiPAP/CPAP] [RC] ASDIRECTED 03/18/19 20:59 CULTURE BLOOD [BC] Stat 03/18/19 21:04 CULTURE BLOOD [BC] Stat 03/18/19 21:36 C-REACTIVE PROTEIN [CHEM] Stat CBC WITH MANUAL DIFF [HEME] Stat COMPREHENSIVE METABOLIC PN,CMP [CHEM] Stat LACTATE SEPSIS W/ REFLEX [CHEM] Stat Saline Lock Insert [OM.PC] Stat Severe Sepsis Onset Time [OM.PC] Stat <Cipriano Reyes - Last Filed: 03/18/19 23:57> ED ROS GENERAL - Review of Systems Review Of Systems: See Below Constitutional: Denies: Fever, Chills HEENT: Reports: No Symptoms Respiratory: Reports: Shortness of Breath, Wheezing, Cough, Sputum Cardiovascular: Denies: Chest Pain, Edema Endocrine: Reports: No Symptoms GI/Abdominal: Denies: Abdominal Pain : Reports: No Symptoms Musculoskeletal: Reports: No Symptoms Skin: Reports: No Symptoms Neurological: Reports: No Symptoms Psychiatric: Reports: Anxiety Hematologic/Lymphatic: Reports: No Symptoms ED EXAM, GENERAL - Physical Exam Exam: See Below Exam Limited By: Respiratory Distress General Appearance: Alert, WD/WN, Severe Distress Eye Exam: Bilateral Eye: Normal Inspection Ears: Normal External Exam, Normal Canal, Normal TMs Nose: Normal Inspection Throat/Mouth: Normal Lips, Normal Voice. No: No Airway Compromise Head: Normocephalic Neck: Supple Respiratory/Chest: Respiratory Distress, Crackles, Rales, Wheezing, Other ( Pacemaker left anterior chest, patient initially was in respiratory distress and with a breathing treatment and oxygen this eased up considerably though he was still very anxious.) Cardiovascular: Regular Rate, Rhythm, No Murmur, Tachycardia GI/Abdominal: Soft Back Exam: Full Range of Motion Extremities: Normal Inspection, Normal Range of Motion. No: Pedal Edema Neurological: Alert, Oriented, Normal Cognition Psychiatric: Anxious Skin Exam: Diaphoretic EKG INTERPRETATION EKG Interpretation Comments: Second EKG done at 7:59 PM shows a sinus tachycardia with a right bundle branch block, there appeared to be some inferior changes though I'm not certain whether this is something new or developing because the patient has no chest pain, there is an old anterior infarct noted there is no prominent ischemia noted. Course - Re-Assessments/Exams Free Text/Narrative Re-Assessment/Exam: 03/18/19 20:00 The patient had episode of hyperventilating and anxiety seems to have eased off with some IV Ativan given by Dr. Shah. He is now seems to be resting comfortably. His oxygen on 2 L is running about 92 so we pushed the oxygen up to 4 L and now is 97. A blood gas was obtained that showed a pH of 7.35 a CO2 of 29.8 and O2 of 70 S wipe with the oxygen up. It does not appear that he is retaining CO2. I think that his main problem is he has exacerbation of his COPD but he also has congestive failure on top of that. He does not start turning around in giving us some output I will consider a BiPAP in an effort to help him clear his lungs. His initial EKG showed multiple suggestions of an acute SD however his troponin was only 0.07 and it was believed that this is related to the cardiac strain from his breathing and congestive heart failure. The patient denies any chest pain whatsoever during this entire episode of near collapse in the lobby to this recent episode of hyperventilating and anxiety. A repeat EKG suggests an old anterior SD and probably an old inferior SD as well though it suggests its acute he does not appear to be in distress. 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 03/18/19 20:08 Old EKG suggests that the inferior changes could be new but the most recent EKG I have is from August of this year. Again the patient denies any chest pain though he did initially when he first collapsed had some chest pressure but he denies any chest pressure presently no pain into his jaw down his arm. 03/18/19 20:39 Patient is starting to have some mild end expiratory wheezing and slight very slight grunting. I'm going to place him on some BiPAP to see if we can maximize his breathing status and hopefully with the pressure we can drive some of the fluid out of his lungs. Once we get the second troponin intake has continued to rise we will transport him down to [facility] in [place]. If it is something will consider admitting him here for exacerbation of his COPD and congestive heart failure. 03/18/19 20:51 Reviewing the history with the patient it sounds like he started out with a bronchitis that has exacerbated his COPD and over time it seems to have gotten worse and then over the last week it sounds like his respiratory status deteriorated and I believe due to the exacerbation of the COPD his heart began to have to work harder and he is now developed some congestive failure from a strained heart can handle the exacerbation of his COPD. He was noted to have a slow drop and his pulse ox to 87% and within the grunting and in expiratory wheezing I placed him on BiPAP to help with his breathing. He does not tolerate breathing treatments well and seems to get in to hyperventilate with him. Once he is on the BiPAP if that seems to make the difference we will await for the blood work. I am going to get 2 blood cultures and the lactic acid is well. I do not believe he is septic but he certainly needs some antibiotics for the exacerbation of his COPD from the bronchitis. 03/18/19 22:17 The patient seems to be doing well with the BiPAP in fact his CO2 is beginning to rise in his negative base excess is diminishing. His second troponin was 0.066 which is lower than the initial troponin. My concern however is that his EKG continued to show some inferior changes suggesting a cardiac event but the patient is not complaining of any sort of cardiac symptoms other than the congestive failure. I believe that he is too much to handle at this facility due to his complicated history and his complicated presentation. The patient certainly could've been in mild sepsis when he first arrived with his pulse rate is 120 respiratory rate greater than 20. During the entire time his blood pressure is held in his heart rate is actually dropped from the 120 down to about 100. I believe overall that he seems to be improving and would be safe transport by ground at this time. I spoke with Dr. Faulkner who is the hospitalist at [facility] in [place]. He believes that the patient could certainly have had a cardiac event but he is willing to accept the patient in transport for further evaluation and treatment. 03/18/19 22:42 The patient was loaded onto the ambulance he was in no great distress. He was wearing the BiPAP and was still working effectively. He was talking with a mask on and alert and in no distress and continues to deny any sort of chest pain or pressure presently. Departure - Departure Time of Disposition: 22:20 Condition: Serious - Discharge Information *PRESCRIPTION DRUG MONITORING PROGRAM REVIEWED*: Not Applicable *COPY OF PRESCRIPTION DRUG MONITORING REPORT IN PATIENT PRAVEEN: Not Applicable ED Communication - ED Communication Date/Time Date: 03/18/19 Time Called: 22:23 - Discussed Case With (1) Discussed Case With (1): Admitting Provider Person/s Notified (1): Dr. Faulkner (He agrees to accept the patient in transport to [facility]) - My Orders Last 24 Hours: My Active Orders 03/18/19 20:00 RT Aerosol Therapy [RC] ASDIRECTED 03/18/19 20:46 Blood Culture x2 Reflex Set [OM.PC] Stat 03/18/19 20:50 BIPAP [RT BiPAP/CPAP] [RC] ASDIRECTED 03/18/19 20:59 CULTURE BLOOD [BC] Stat 03/18/19 21:04 CULTURE BLOOD [BC] Stat 03/18/19 21:36 C-REACTIVE PROTEIN [CHEM] Stat CBC WITH MANUAL DIFF [HEME] Stat COMPREHENSIVE METABOLIC PN,CMP [CHEM] Stat LACTATE SEPSIS W/ REFLEX [CHEM] Stat Saline Lock Insert [OM.PC] Stat Severe Sepsis Onset Time [OM.PC] Stat - Assessment/Plan Last 24 Hours: My Active Orders 03/18/19 20:00 RT Aerosol Therapy [RC] ASDIRECTED 03/18/19 20:46 Blood Culture x2 Reflex Set [OM.PC] Stat 03/18/19 20:50 BIPAP [RT BiPAP/CPAP] [RC] ASDIRECTED 03/18/19 20:59 CULTURE BLOOD [BC] Stat 03/18/19 21:04 CULTURE BLOOD [BC] Stat 03/18/19 21:36 C-REACTIVE PROTEIN [CHEM] Stat CBC WITH MANUAL DIFF [HEME] Stat COMPREHENSIVE METABOLIC PN,CMP [CHEM] Stat LACTATE SEPSIS W/ REFLEX [CHEM] Stat Saline Lock Insert [OM.PC] Stat Severe Sepsis Onset Time [OM.PC] Stat
[2019-03-18 18:50] VITALS: BP 142/128; PULSE 123
[2019-03-18] MEDS ORDERED: Aspirin 81 MG Tab.Chew PO ONE (18:57)
[2019-03-18] MEDS ORDERED: Sodium Chloride 0.9% 1,000 ML IV SCH (19:00)
[2019-03-18] MEDS ORDERED: Furosemide 40 MG/4 ML VIAL IVPUSH ONE ×2 (19:31→19:59)
[2019-03-18] MEDS ORDERED: Morphine 4 MG/ML Syringe IVPUSH ONE (19:31)
[2019-03-18] MEDS ORDERED: LORazepam 2 MG/ML SDV IVPUSH ONE (19:33)
[2019-03-18] MEDS ORDERED: cefTRIAXone 1 GM in Sodium Chloride 0.9% 100 ML IV ONE (21:12)
[2019-03-18] MEDS ORDERED: methylPREDNISolone Sodium Succinate 125 MG/2 ML SDV IVPUSH ONE (21:35)
[2019-03-18] MEDS ORDERED: Sodium Chloride 0.9% 1,000 ML IV ONE (21:36)
--- NOTE | 2019-03-19 16:15 | CR ---
Chest: Portable view of the chest was obtained. Comparison: Prior chest x-ray of 09/15/18. Heart is enlarged. AICD is noted. Central lung markings are increased which appear stable. No acute parenchymal change is seen. Oligemic change is noted within both upper lungs suggesting emphysematous change. Previous cervical spine surgery is noted. Impression: 1. Cardiomegaly with AICD. 2. Other findings as noted above believed to be stable. Diagnostic code #2
== END 2019-03-18 22:40 ==
LOC: JD.ED 17:52
DX: J44.0 Chronic obstructive pulmonary disease with (acute) lower respiratory infection (principal); J20.9 Acute bronchitis, unspecified; J44.1 Chronic obstructive pulmonary disease with (acute) exacerbation; R79.89 Other specified abnormal findings of blood chemistry; E78.00 Pure hypercholesterolemia, unspecified; I10 Essential (primary) hypertension; I25.2 Old myocardial infarction; F17.210 Nicotine dependence, cigarettes, uncomplicated; Z91.89 Other specified personal risk factors, not elsewhere classified; Z95.0 Presence of cardiac pacemaker; Z88.5 Allergy status to narcotic agent; Z79.82 Long term (current) use of aspirin; Z79.899 Other long term (current) drug therapy; Z79.02 Long term (current) use of antithrombotics/antiplatelets; Z79.51 Long term (current) use of inhaled steroids; Z95.5 Presence of coronary angioplasty implant and graft
CPT/HCPCS: 36415; 36600; 71045; 80053; 80162; 81001; 82803; 83605; 83880; 84484; 85025; 85610; 86140; 87040; 93005; 94640; 94660; 96365; 96375; 99285; A9270; G0480; J0696; J1940; J2060; J2930; J7030; J7040; J7620-GY

== ENCOUNTER 2019-10-11 12:16 | Emergency (ER) | payer MEDICARE, OTHER ==
[2019-10-11] MEDS ORDERED: Sodium Chloride 0.9% 10 ML Syringe FLUSH PRN (12:50)
--- NOTE | 2019-10-11 13:20 | CR ---
Chest: Portable view of the chest was obtained. Comparison: Prior chest x-ray of 03/18/19. Heart is enlarged. Upper mediastinum is normal. AICD is noted. Prior cervical spine and lumbar spine surgery is seen. Lungs are clear with no acute parenchymal change. Oligemic change from emphysematous change is noted within the right upper chest. Impression: 1. Cardiomegaly. Emphysematous oligemic change within the right upper chest. 2. Other findings as noted above. Nothing acute is seen. Diagnostic code #2 This report was dictated in MDT
--- NOTE | 2019-10-11 14:54 | EDM.PDOC ---
ED HPI GENERAL MEDICAL PROBLEM - General Chief Complaint: Cardiovascular Problem Stated Complaint: SENT BY CLINIC ABNORMAL EKG Time Seen by Provider: 10/11/19 12:35 Source of Information: Reports: Patient History Limitations: Reports: No Limitations - History of Present Illness INITIAL COMMENTS - FREE TEXT/NARRATIVE: The patient presents from the clinic with chest pain and EKG changes. The patient had an EKG done at the clinic and there was some ST elevation in the inferior leads. He was sent done for further evaluation. He did have chest pain yesterday after lifting a heavy bin. He has no pain now. He has no shortness of breath. He has a long history of heart disease and he has a pacemaker. He had a 50 pound weight loss over a few months and that is why he is being worked up. Onset: Gradual Duration: Day(s): (Yesterday) Location: Reports: Chest Quality: Reports: Sharp Severity: Moderate Improves with: Reports: None Worsens with: Reports: None Associated Symptoms: Reports: Chest Pain. Denies: Cough, Fever/Chills, Headaches, Nausea/Vomiting, Shortness of Breath - Related Data Allergies Allergy/AdvReac Type Severity Reaction Status Date / Time morphine Allergy Difficulty Verified 10/11/19 12:41 Breathing Home Meds: Home Meds Aspirin [Balbir Chewable Aspirin] 81 mg PO DAILY 09/17/13 [History] Lisinopril 2.5 mg PO DAILY 09/17/13 [History] Multivitamin [Multi Vitamin Daily] 1 each PO DAILY 09/17/13 [History] Clopidogrel [Plavix] 75 mg PO DAILY 04/06/14 [History] atorvaSTATin [Lipitor] 40 mg PO DAILY 04/06/14 [History] carvediloL [Carvedilol] 3.125 mg PO BID 04/06/14 [History] Albuterol [Ventolin HFA] 1 puff INH Q4H PRN 03/18/19 [History] Budesonide/Formoterol Fumarate [Symbicort 80-4.5 MCG] 2 puff INH BID 03/18/19 [ History] Digoxin 0.125 mg PO DAILY 03/18/19 [History] Furosemide [Lasix] 40 mg PO DAILY 03/18/19 [History] Hydrocodone/Acetaminophen [Hydrocodon-Acetaminophn 10-325] 1 tab PO Q4H PRN [History] Potassium Chloride 20 meq PO DAILY 03/18/19 [History] diazePAM [Valium] 5 mg PO BEDTIME 03/18/19 [History] Past Medical History HEENT History: Reports: Impaired Vision Other HEENT History: wears eyeglasses for reading. Cardiovascular History: Reports: High Cholesterol, Hypertension, [place], Prior Cardiac Arrest, Stents Respiratory History: Reports: COPD Gastrointestinal History: Reports: Helicobacter Pylori Musculoskeletal History: Reports: Fracture Neurological History: Reports: Migraines - Infectious Disease History Infectious Disease History: Reports: Chicken Pox, Measles - Past Surgical History Cardiovascular Surgical History: Reports: Pacer GI Surgical History: Reports: Appendectomy, Colonoscopy Musculoskeletal Surgical History: Reports: Other (See Below) Other Musculoskeletal Surgeries/Procedures:: back fusion Social & Family History - Tobacco Use Smoking Status *Q: Light Tobacco Smoker Years of Tobacco use: 10 Packs/Tins Daily: 0.2 - Caffeine Use Caffeine Use: Reports: None - Recreational Drug Use Recreational Drug Use: No ED ROS GENERAL - Review of Systems Review Of Systems: See Below Constitutional: Reports: No Symptoms HEENT: Reports: No Symptoms Respiratory: Reports: No Symptoms Cardiovascular: Reports: Chest Pain Endocrine: Reports: No Symptoms GI/Abdominal: Reports: No Symptoms : Reports: No Symptoms ED EXAM, GENERAL - Physical Exam Exam: See Below Exam Limited By: No Limitations General Appearance: Alert, No Apparent Distress Ears: Normal External Exam Nose: Normal Inspection Head: Atraumatic, Normocephalic Neck: Normal Inspection Respiratory/Chest: No Respiratory Distress, Lungs Clear, Normal Breath Sounds Cardiovascular: Regular Rate, Rhythm, No Edema, No Murmur GI/Abdominal: Soft, Non-Tender, No Organomegaly, No Mass Back Exam: Normal Inspection Extremities: Normal Inspection EKG INTERPRETATION EKG Date: 10/11/19 Time: 12:29 Rhythm: NSR Rate (Beats/Min): 64 [place]: LAD-Left [place] Deviation P-Wave: Present QRS: RBBB ST-T: Elevated (Minimal elevation in the inferior leads) QT: Normal Course - Vital Signs Last Recorded V/S: Last Vital Signs Temp 97.2 F 10/11/19 12:35 Pulse 65 10/11/19 12:35 Resp 18 10/11/19 12:35 BP 105/66 10/11/19 12:41 Pulse Ox 97 10/11/19 12:35 - Orders/Labs/Meds Orders: Active Orders 24 hr Category Date Time Status Cardiac Monitoring [RC] . DIRECTED Care 10/11/19 12:50 Active EKG Documentation Completion [RC] STAT Care 10/11/19 12:51 Active Peripheral IV Care [RC] . DIRECTED Care 10/11/19 12:51 Active TROPONIN I [CHEM] Stat Lab 10/11/19 14:40 Received Sodium Chloride 0.9% [Saline Flush] Med 10/11/19 12:50 Active 10 ml FLUSH ASDIRECTED PRN Peripheral IV Insertion Adult [OM.PC] Stat Oth 10/11/19 12:50 Ordered Medication Orders Sodium Chloride (Saline Flush) 10 ml FLUSH ASDIRECTED PRN PRN Reason: Keep Vein Open Last Admin: 10/11/19 13:21 Dose: 10 ml Labs: Laboratory Tests 10/11/19 10/11/19 Range/Units 12:49 12:49 WBC 7.69 (4.23-9.07) K/mm3 RBC 4.27 L (4.63-6.08) M/mm3 Hgb 13.8 (13.7-17.5) gm/dl Hct 41.0 (40.1-51.0) % MCV 96.0 H (79.0-92.2) fl MCH 32.3 H (25.7-32.2) pg MCHC 33.7 (32.2-35.5) g/dl RDW Std Deviation 45.4 H (35.1-43.9) fL Plt Count 274 (163-337) K/mm3 MPV 10.7 (9.4-12.3) fl Neut % (Auto) 63.1 (34.0-67.9) % Lymph % (Auto) 24.4 (21.8-53.1) % [place] % (Auto) 9.9 (5.3-12.2) % Eos % (Auto) 2.2 (0.8-7.0) Baso % (Auto) 0.3 (0.1-1.2) % Neut # (Auto) 4.85 (1.78-5.38) K/mm3 Lymph # (Auto) 1.88 (1.32-3.57) K/mm3 [place] # (Auto) 0.76 (0.30-0.82) K/mm3 Eos # (Auto) 0.17 (0.04-0.54) K/mm3 Baso # (Auto) 0.02 (0.01-0.08) K/mm3 Sodium 140 (136-145) mEq/L Potassium 3.6 (3.5-5.1) mEq/L Chloride 103 (98-107) mEq/L Carbon Dioxide 24 (21-32) mEq/L Anion Gap 16.6 H (5-15) BUN 14 (7-18) mg/dL Creatinine 0.8 (0.7-1.3) mg/dL Est Cr Clr Drug Dosing 77.11 mL/min Estimated GFR (MDRD) > 60 (>60) mL/min BUN/Creatinine Ratio 17.5 (14-18) Glucose 99 (80-115) mg/dL Calcium 9.0 (8.5-10.1) mg/dL Total Bilirubin 0.5 (0.2-1.0) mg/dL AST 19 (15-37) U/L ALT 21 (16-63) U/L Alkaline Phosphatase 83 (46-116) U/L Troponin I 0.026 (0.00-0.056) ng/mL Total Protein 7.3 (6.4-8.2) g/dl Albumin 3.5 (3.4-5.0) g/dl Globulin 3.8 gm/dL Albumin/Globulin Ratio 0.9 L (1-2) Meds: Medications Generic Name Dose Route Start Last Admin Trade Name Freq PRN Reason Stop Dose Admin Sodium Chloride 10 ml 10/11/19 12:50 10/11/19 13:21 Saline Flush FLUSH 10 ml ASDIRECTED PRN Administration Keep Vein Open - Re-Assessments/Exams Free Text/Narrative Re-Assessment/Exam: 10/11/19 14:54 I ordered an EKG, CXR and labs. His EKG shows a NSR with a RBBC and slight ST elevation in the inferior leads. It appears those changes have been there before. His CXR shows nothing acute. 10/11/19 14:56 His CBC and CMP look good. His troponin is negative. I will do a repeat troponin. Departure - Departure Time of Disposition: 15:00 Disposition: Home, Self-Care 01 Condition: Good Clinical Impression: Chest pain Qualifiers: Chest pain type: unspecified Qualified Code(s): R07.9 - Chest pain, unspecified Referrals: Kobi Foley MD [Primary Care Provider] - 1 Week Additional Instructions: Take your medication as prescribed. Please return if you are worse. Sepsis Event Note - Evaluation Sepsis Screening Result: No Definite Risk - Focused Exam Vital Signs: Vital Signs Temp Pulse Resp BP Pulse Ox 10/11/19 12:41 105/66 10/11/19 12:35 97.2 F 65 18 99/59 L 97 Date Exam was Performed: 10/11/19 Time Exam was Performed: 14:49 - My Orders Last 24 Hours: My Active Orders 10/11/19 12:50 Cardiac Monitoring [RC] . DIRECTED Sodium Chloride 0.9% [Saline Flush] 10 ml FLUSH ASDIRECTED PRN Peripheral IV Insertion Adult [OM.PC] Stat 10/11/19 12:51 EKG Documentation Completion [RC] STAT Peripheral IV Care [RC] . DIRECTED 10/11/19 14:40 TROPONIN I [CHEM] Stat - Assessment/Plan Last 24 Hours: My Active Orders 10/11/19 12:50 Cardiac Monitoring [RC] . DIRECTED Sodium Chloride 0.9% [Saline Flush] 10 ml FLUSH ASDIRECTED PRN Peripheral IV Insertion Adult [OM.PC] Stat 10/11/19 12:51 EKG Documentation Completion [RC] STAT Peripheral IV Care [RC] . DIRECTED 10/11/19 14:40 TROPONIN I [CHEM] Stat
[2019-10-11 15:40] VITALS: BP 108/65; PULSE 59
== END 2019-10-11 15:30 | disposition home or self-care (01) ==
LOC: JD.ED 12:16
DX: R07.9 Chest pain, unspecified (principal); E78.00 Pure hypercholesterolemia, unspecified; I10 Essential (primary) hypertension; I25.2 Old myocardial infarction; J44.9 Chronic obstructive pulmonary disease, unspecified; F17.210 Nicotine dependence, cigarettes, uncomplicated; Z88.5 Allergy status to narcotic agent; Z79.82 Long term (current) use of aspirin; Z79.02 Long term (current) use of antithrombotics/antiplatelets; Z79.899 Other long term (current) drug therapy
CPT/HCPCS: 36415; 71045; 71045-26; 80053; 84484; 85025; 93005; 99285-25